=== PATIENT | male | born 2000 | race Asian ===

== ENCOUNTER → 2024-02-02 06:36 | Day surgery (SDC) | payer OTHER, SELFPAY ==
[2024-02-02] VITALS (10 sets, daily range): BP systolic 101–135; BP diastolic 28–86; BMI 17.5
== END ==
LOC: SDS 06:36
PROVIDERS: ATTENDING PHYSICIAN Otolaryngology Facial Plastic Surgery
DX: J34.2 Deviated nasal septum (principal); J34.89 Other specified disorders of nose and nasal sinuses; S02.2XXA Fracture of nasal bones, initial encounter for closed fracture; X58.XXXA Exposure to other specified factors, initial encounter; M95.0 Acquired deformity of nose; Z87.81 Personal history of (healed) traumatic fracture
CPT/HCPCS: 21335